=== PATIENT | male | born 1970 | race Caucasian/White ===

== ENCOUNTER 2017-09-09 15:45 | Emergency (ER) | payer BC ==
[~2017-09-09] VITALS: Ht 170.2 cm; Wt 83.0 kg
[~2017-09-09 15:45] MED LIST: ZOFRAN ODT8 MG PO
[2017-09-09] MEDS ORDERED: NAPROSYN500 MG PO (18:34)
== END 2017-09-09 18:45 | disposition home or self-care (01) ==
LOC: ED 15:45
DX: I86.1 Scrotal varices (principal)
CPT/HCPCS: 74176; 76870; 80053; 81001; 83690; 85025; 87591; 96361; 96374; 99284; J1885; J7040

== ENCOUNTER 2018-02-23 19:45 | Emergency (ER) | payer BC ==
[~2018-02-23] VITALS: Ht 170.2 cm; Wt 86.6 kg
[~2018-02-23 19:45] MED LIST changes: +MELOXICAM15 MG PO; +METOPROLOL SUCC25 MG PO; +NAPROSYN500 MG PO; +RANITIDINE HCL150 MG PO
[2018-02-23] MEDS ORDERED: SUDOGEST60 MG PO (21:39)
== END 2018-02-24 00:01 | disposition home or self-care (01) ==
LOC: ED 19:45
DX: J32.9 Chronic sinusitis, unspecified (principal); I10 Essential (primary) hypertension; K21.9 Gastro-esophageal reflux disease without esophagitis; Z87.891 Personal history of nicotine dependence; Z79.899 Other long term (current) drug therapy
CPT/HCPCS: 70450; 99283-25

== ENCOUNTER 2020-04-20 17:27 | Emergency (ER) | payer BC ==
[~2020-04-20] VITALS: Ht 170.2 cm; Wt 99.8 kg
[~2020-04-20 17:27] MED LIST changes: +SUDOGEST60 MG PO
[2020-04-20] MEDS ORDERED: LOSARTAN POTASS50 MG PO (17:58)
[2020-04-20] MEDS ORDERED: AMLODIPINE BESY10 MG PO (17:58)
[2020-04-20] MEDS ORDERED: ASPIRIN81 MG PO (17:59)
[2020-04-20] MEDS ORDERED: LIPO-FLAVONOID1 EACH PO (17:59)
[2020-04-20] MEDS ORDERED: FISH OIL 1,0001 EAC3 PO (17:59)
== END 2020-04-20 18:44 | disposition home or self-care (01) ==
LOC: ED 17:27
DX: S31.801A Laceration without foreign body of unspecified buttock, initial encounter (principal); X58.XXXA Exposure to other specified factors, initial encounter; K21.9 Gastro-esophageal reflux disease without esophagitis; I10 Essential (primary) hypertension; Z87.891 Personal history of nicotine dependence; Z79.899 Other long term (current) drug therapy; Z79.82 Long term (current) use of aspirin
CPT/HCPCS: 99283

== ENCOUNTER 2020-12-06 06:23 | Day surgery (SDC) | payer BC ==
[~2020-12-06] VITALS: Ht 170.2 cm; Wt 102.1 kg
[~2020-12-06 06:23] MED LIST changes: +AMLODIPINE BESY10 MG PO; +ASPIRIN81 MG PO; +FISH OIL 1,0001 EAC3 PO; +LIPO-FLAVONOID1 EACH PO; +LOSARTAN POTASS50 MG PO
[2020-12-06] MEDS ORDERED: XANAX1 MG PO (06:42)
--- NOTE | 2020-12-06 07:57 | NUR ---
PT ALERT, ORIENTED AND SUPPORTED BY HIS MARCELO. PT IS HERE FOR HIS FIRST SCOPE. ALL QUESTIONS ASKED ANSWERED. MARCELO WILL WAIT, PT REQUESTED PRAYER, WILL FOLLOW NEEDED
--- NOTE | 2020-12-06 08:09 | NUR ---
12/06/20 0809 KAZ THOMAS 0759-PATIENT TO PACU ON RA. PATIENT PUT ON 2L PER NC. RR EVEN. PATIENT LAYING LEFT LATERAL. IV FLUIDS INFUSION. PATIENT IS SLEEPING BUT EASY AROUSABLE.
--- NOTE | 2020-12-07 08:14 | OR ---
[facility] [address] [place], [place] [address] Signed DATE OF OPERATION: 12/06/2020 SURGEON: Diamante Estevez MD PREOPERATIVE DIAGNOSES: 1. Screening. 2. Posterior midline anal fistula. 3. Small internal hemorrhoids. POSTOPERATIVE DIAGNOSES: 1. Tivuzff-kk-txayxrzw pandiverticulosis. 2. Posterior midline anal fistula. 3. 4 mm rectal polyp at 8 cm. 4. Small internal hemorrhoids. PROCEDURE: Colonoscopy with hot biopsy. ESTIMATED BLOOD LOSS: None. 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 He had come to my office for 2 reasons. First, he needed a screening colonoscopy. He has no family history of colon cancer or polyps. He has never had a previous colonoscopy. However, he was complaining of drainage and irritation around the anus for over a year. He can feel pressure buildup and it releases and feels better. He said once in a while he sees blood involved as well. His has been helping him keep that area clean. On exam in the office, he indeed has a posterior midline anal fistula. I can feel a little pocket underneath. It does not appear to be particularly deep. He had good sphincter tone. The anoscope showed minimal internal hemorrhoid tissue. The rectal mucosa was unremarkable. In the office, I gave Kenneth and his a pamphlet on colonoscopy. We had reviewed the nature of that test in detail. 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 His has also undergone colonoscopy with myself just a few weeks ago. They understand there is risk including, but not limited to gas bloating, crampy abdominal pain, bleeding, perforation requiring surgery, and missed diagnosis. He also understands the need for IV conscious sedation. We reviewed IV sedation versus monitored anesthesia care in great detail. Kenneth wanted to proceed with routine IV conscious sedation with Versed and fentanyl. However, he did request Xanax in order to Electronically Signed By: DIAMANTE ESTEVEZ MD 12/07/20 0814 PATIENT NAME: KENNETH DOS SANTOS OPERATIVE REPORT DATE OF : 68 REPORT #: [id number] PHYSICIAN: DIAMANTE ESTEVEZ MD PCP: ABDIEL CISNEROS MD REPORT IS CONFIDENTIAL AND NOT TO BE RELEASED WITHOUT AUTHORIZATION [facility] [address] [place] [id number] Signed help him come in the building this morning due to his anxiety. He had expressed understanding and wished to proceed. PROCEDURE NOTE: Kenneth was taken into our endoscopy suite and placed in the left lateral decubitus position. We had 4 mg of Zofran and 12.5 mg of Phenergan in our preop area to the Xanax that he took about 2 hours prior to coming. Once in the endoscopy suite, he was given divided doses of 6 mg of Versed and 200 mcg of fentanyl. A digital rectal exam had been performed and again he has good sphincter tone. I could see the fistula opening in the posterior midline. I can feel a small pocket of induration underneath that area. Really nothing in the way of external hemorrhoids. His prostate was unremarkable. The adult colonoscope was introduced and advanced all around into the cecum under direct visualization of the camera without difficulty. He took a little extra sedation and Fentanyl to get around to the cecum itself. His prep was quite excellent. We could easily see the appendiceal orifice and the ileocecal valve. The scope was then slowly withdrawn. We took several pictures throughout for photodocumentation. He does have diverticula throughout the colon. They were moderate in size, a few to moderate in number and scattered about. He had just a single small 4 mm polyp at 8 cm in the rectum. It was easily removed with hot biopsy forceps. The scope was then retroflexed in the rectum. He has very minimal internal hemorrhoid tissue. After this, the gas was suctioned out and colonoscope removed. Kenneth tolerated the procedure quite well. RECOMMENDATIONS: I will see Kenneth back in my office in 7 to 14 days to review his results and the posterior midline anal fistula. Diamante Estevez MD ALB/MODL /[id number] cc: Diamante Estevez MD Chart Filed Incomplete Abdiel Cisneros MD Electronically Signed By: DIAMANTE ESTEVEZ MD 12/07/20 0814 PATIENT NAME: KENNETH DOS SANTOS OPERATIVE REPORT DATE OF : 68 REPORT #: [id number] PHYSICIAN: DIAMANTE ESTEVEZ MD PCP: ABDIEL CISNEROS MD REPORT IS CONFIDENTIAL AND NOT TO BE RELEASED WITHOUT AUTHORIZATION [address] [address] Signed Copies: DIAMANTE ESTEVEZ MD CHART FILED INCOMPLETE ABDIEL CISNEROS MD ~ Electronically Signed By: DIAMANTE ESTEVEZ MD 12/07/2014 PATIENT NAME: KENNETH DOS SANTOS OPERATIVE REPORT DATE OF : 68 REPORT #: [id number] PHYSICIAN: DIAMANTE ESTEVEZ MD PCP: ABDIEL CISNEROS MD REPORT IS CONFIDENTIAL AND NOT TO BE RELEASED WITHOUT AUTHORIZATION
--- NOTE | 2020-12-07 15:08 | PATH ---
[facility] [address], [place] [address] Signed SPECIMEN(S): A COLON POLYP AT 8 CM SPECIMEN SOURCE: A. COLON POLYP AT 8 CM CLINICAL HISTORY: Colonoscopy screening. Anal fistula; small internal hemorrhoids/rectal polyp; diverticulosis. MICROSCOPIC DESCRIPTION: Histologic sections of all submitted blocks are examined by light microscopy. These findings, together with the gross examination, support the pathologic diagnosis. FINAL PATHOLOGIC DIAGNOSIS: Colon, 8 cm, polypectomy: - Hyperplastic polyp. BRP:caw:C2NR GROSS DESCRIPTION: The specimen, labeled "BH, 1," and designated on the requisition "8 cm colon polypectomy," is received in formalin and consists of one fragment of pink-bahena tissue (0.2 cm in greatest dimension). The specimen is submitted entirely in cassette (A1). AC (under the direct supervision of a pathologist) The Gross Description was prepared using a voice recognition system. The report was reviewed for accuracy; however, sound-alike word errors, addition and/or deletions may occur. If there is any question about this report, please contact Client Services. PERFORMING LABORATORY: The technical component was performed by [facility], [address] [place] [id number] (Copy Director: Libby Edouard MD; CLIA# [id number]). [facility], [address] [address] (CLIA# [id number]). Diagnostician: Ruben White MD Pathologist Electronically Signed 12/07/2020 PATIENT NAME: KENNETH DOS SANTOS PATHOLOGY DATE OF : 68 REPORT #: [id number] PHYSICIAN: [facility] PCP: ABDIEL CISNEROS MD REPORT IS CONFIDENTIAL AND NOT TO BE RELEASED WITHOUT AUTHORIZATION [address] [address] Signed Copies: ~ PATIENT NAME: KENNETH DOS SANTOS PATHOLOGY DATE OF : 68 REPORT #: [id number] PHYSICIAN: [facility] PCP: ABDIEL CISNEROS MD REPORT IS CONFIDENTIAL AND NOT TO BE RELEASED WITHOUT AUTHORIZATION
== END 2020-12-06 09:09 | disposition home or self-care (01) ==
LOC: DS 06:23 → OPS 06:23 → DS 06:45 → OPS 06:45
PROVIDERS: ATTEND Colon & Rectal Surgery
PROC: 0DBP8ZX Excision of Rectum, Via Natural or Artificial Opening Endoscopic, Diagnostic (ICD-10-PCS; principal; 2020-12-06 06:45)
DX: K62.1 Rectal polyp (principal); K57.30 Diverticulosis of large intestine without perforation or abscess without bleeding; K60.3 Anal fistula; K64.8 Other hemorrhoids; I10 Essential (primary) hypertension; E78.5 Hyperlipidemia, unspecified; Z87.891 Personal history of nicotine dependence; Z88.8 Allergy status to other drugs, medicaments and biological substances
CPT/HCPCS: 99153; G0500; J2250; J2405; J2550; J3010; J7121

== ENCOUNTER 2021-05-25 13:04 | Emergency (ER) | payer BC ==
[~2021-05-25] VITALS: Ht 170.2 cm; Wt 105.3 kg
[~2021-05-25 13:04] MED LIST changes: +XANAX1 MG PO
[2021-05-25] MEDS ORDERED: INDAPAMIDE1.25 MG PO (13:43)
[2021-05-25] MEDS ORDERED: ELIQUIS5 MG PO (16:16)
--- NOTE | 2021-05-25 17:28 | EKG ---
[facility] [address] [place] [address] Signed Normal sinus rhythm Cannot rule out Anterior infarct , age undetermined Abnormal ECG When compared with ECG of 25-MAY-2021 13:09, (Unconfirmed) Sinus rhythm has replaced Atrial flutter Vent. rate has decreased BY [address] no longer depressed in Inferior leads ST less depressed in Lateral leads Confirmed by ABDIEL CISNEROS MD ([id number]) on 05/25/2021 5:28:28 PM Electronically Signed By: ABDIEL CISNEROS MD 05/25/21 1728 PATIENT NAME: KENNETH DOS SANTOS Electrocardiogram DATE OF : 68 PHYSICIAN: ABDIEL CISNEROS MD REPORT #: [id number] REPORT IS CONFIDENTIAL AND NOT TO BE RELEASED WITHOUT AUTHORIZATION
--- NOTE | 2021-05-25 17:28 | EKG ---
[facility] [address] [facility] [place] [address] Signed Atrial flutter with variable AV block with premature ventricular or aberrantly conducted complexes Nonspecific ST abnormality Abnormal ECG When compared with ECG of 09-DEC-2017 14:21, Atrial flutter has replaced Sinus rhythm Vent. rate has increased BY [address] now depressed in Inferior leads ST now depressed in Lateral leads Confirmed by ABDIEL CISNEROS MD ([id number]) on 05/25/2021 5:28:10 PM Electronically Signed By: ABDIEL CISNEROS MD 05/25/21 1728 PATIENT NAME: KENNETH DOS SANTOS Electrocardiogram DATE OF : 68 PHYSICIAN: ABDIEL CISNEROS MD REPORT #: [id number] REPORT IS CONFIDENTIAL AND NOT TO BE RELEASED WITHOUT AUTHORIZATION
== END 2021-05-25 17:20 | disposition home or self-care (01) ==
LOC: ED 13:04
DX: I48.92 Unspecified atrial flutter (principal); K21.9 Gastro-esophageal reflux disease without esophagitis; I10 Essential (primary) hypertension; Z87.891 Personal history of nicotine dependence; Z88.8 Allergy status to other drugs, medicaments and biological substances; Z79.899 Other long term (current) drug therapy; Z79.82 Long term (current) use of aspirin; Z20.822 Contact with and (suspected) exposure to COVID-19
CPT/HCPCS: 36415; 80053; 83735; 84484; 85025; 93005; 93010; 96374; 96375; 99285-25; J0153; J2704; J7030; U0003

== ENCOUNTER 2021-07-07 18:55 | Emergency (ER) | payer BC ==
[~2021-07-07] VITALS: Ht 170.2 cm; Wt 105.2 kg
[~2021-07-07 18:55] MED LIST changes: +ELIQUIS5 MG PO; +INDAPAMIDE1.25 MG PO
[2021-07-07] MEDS ORDERED: MULTI VITAMIN1 EACH PO (19:14)
[2021-07-07] MEDS ORDERED: CARDIZEM CD180 MG PO (22:19)
[2021-07-07] MEDS ORDERED: ELIQUIS5 MG PO (22:19)
--- NOTE | 2021-07-09 08:59 | EKG ---
[facility] [address] [facility] [place] [address] Signed Atrial flutter with variable block Marked ST abnormality, possible inferior subendocardial injury Abnormal ECG No previous ECGs available Confirmed by ABDIEL CISNEROS MD ([id number]) on 07/09/2021 8:58:42 AM Electronically Signed By: ABDIEL CISNEROS MD 07/09/21 0859 PATIENT NAME: KENNETH DOS SANTOS Electrocardiogram DATE OF : 68 PHYSICIAN: ABDIEL CISNEROS MD REPORT #: [id number] REPORT IS CONFIDENTIAL AND NOT TO BE RELEASED WITHOUT AUTHORIZATION
== END 2021-07-07 22:34 | disposition home or self-care (01) ==
LOC: ED 18:55
DX: I48.92 Unspecified atrial flutter (principal); K21.9 Gastro-esophageal reflux disease without esophagitis; I10 Essential (primary) hypertension; G47.30 Sleep apnea, unspecified; Z87.891 Personal history of nicotine dependence; Z88.8 Allergy status to other drugs, medicaments and biological substances; Z79.01 Long term (current) use of anticoagulants; Z79.82 Long term (current) use of aspirin; Z79.899 Other long term (current) drug therapy
CPT/HCPCS: 36415; 80048; 83735; 85025; 93005; 93010; 96374; 96376; 99285-25; A9270; J2704

== ENCOUNTER 2021-09-21 13:52 | Emergency (ER) | payer BC ==
[~2021-09-21] VITALS: Ht 170.2 cm; Wt 102.5 kg
--- NOTE | ~2021-09-21 | EKG ---
[facility] [address] [facility] [place], [place] [address] Draft EKG completed, results pending confirmation PATIENT NAME: KENNETH DOS SANTOS Electrocardiogram DATE OF : 68 PHYSICIAN: PRELIMINARY REPORT #: [id number] REPORT IS CONFIDENTIAL AND NOT TO BE RELEASED WITHOUT AUTHORIZATION
[~2021-09-21 13:52] MED LIST changes: +CARDIZEM CD180 MG PO; +MULTI VITAMIN1 EACH PO
[2021-09-21] MEDS ORDERED: BUSPIRONE HCL10 MG PO (14:22)
== END 2021-09-21 15:27 | disposition home or self-care (01) ==
LOC: ED 13:52
DX: I48.92 Unspecified atrial flutter (principal); K21.9 Gastro-esophageal reflux disease without esophagitis; I10 Essential (primary) hypertension; G47.30 Sleep apnea, unspecified; Z87.891 Personal history of nicotine dependence; Z88.8 Allergy status to other drugs, medicaments and biological substances; Z79.899 Other long term (current) drug therapy
CPT/HCPCS: 36415; 80048; 84484; 85025; 93005; 93010; 99285-25; A9270

== ENCOUNTER 2021-10-08 17:50 | Emergency (ER) | payer BC ==
[~2021-10-08] VITALS: Ht 170.2 cm; Wt 97.1 kg
--- NOTE | ~2021-10-08 | EKG ---
[facility] [address] [facility] [place], [place] [address] Draft EK completed, results pending confirmation PATIENT NAME: KENNETH DOS SANTOS Electrocardiogram DATE OF : 68 PHYSICIAN: PRELIMINARY REPORT #: [id number] REPORT IS CONFIDENTIAL AND NOT TO BE RELEASED WITHOUT AUTHORIZATION
--- NOTE | ~2021-10-08 | EKG ---
[facility] [address] [facility] [place], [place] [address] Draft EK completed, results pending confirmation PATIENT NAME: KENNETH DOS SANTOS Electrocardiogram DATE OF : 68 PHYSICIAN: PRELIMINARY REPORT #: [id number] REPORT IS CONFIDENTIAL AND NOT TO BE RELEASED WITHOUT AUTHORIZATION
[~2021-10-08 17:50] MED LIST changes: +BUSPIRONE HCL10 MG PO
--- OUTSIDE RECORDS SUMMARY | 2021-10-08 17:52 | XMS ---
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 Alfonso has no Care Guidelines for this patient. Krunal VISIT COUNT (12 MO.) [facility] T[facility] NOTE: Visits indicate total known visits. ED/C VISIT TRACKING (12 MO.) 10/08/2021 17:51 [facility] TYPE: Emergency COMPLAINT: - CHEST FLUTTERS 09/21/2021 13:53 [facility] TYPE: Emergency DIAGNOSES: - Gastro-esophageal reflux disease without esophagitis - Unspecified atrial flutter - Essential (primary) hypertension - Other intermodal customer service (current) drug therapy - Allergy status to other drugs, medicaments and biological substances - Palpitations - Sleep apnea, unspecified - Personal history of nicotine dependence 07/07/2021 18:55 [facility] TYPE: Emergency COMPLAINT: - HIGH BLOOD PRESSURE DIAGNOSES: - Sleep apnea, unspecified - Essential (primary) hypertension - skilled nursing (current) use of anticoagulants - Gastro-esophageal reflux disease without esophagitis - Unspecified atrial flutter - intermediate designer (current) use of aspirin - Allergy status to other drugs, medicaments and biological substances - Palpitations - Other care home (current) drug therapy - Personal history of nicotine dependence 05/25/2021 13:04 [facility] TYPE: Emergency COMPLAINT: - HIGH B/P, RACING HEART DIAGNOSES: - Personal history of nicotine dependence - Allergy status to other drugs, medicaments and biological substances - intermediate designer (current) use of aspirin - Other intermodal customer service (current) drug therapy - Tachycardia, unspecified - Contact with and (suspected) exposure to COVID-19 - Essential (primary) hypertension - Unspecified atrial flutter - Gastro-esophageal reflux disease without esophagitis INPATIENT VISIT TRACKING (12 MO.) No inpatient visits to display in this time frame [id number]
[2021-10-08] MEDS ORDERED: ALDACTONE25 MG PO (18:32)
[2021-10-08] MEDS ORDERED: ASPIRIN81 MG PO (18:32)
== END 2021-10-08 21:00 | disposition home or self-care (01) ==
LOC: ED 17:50
DX: I48.92 Unspecified atrial flutter (principal); I10 Essential (primary) hypertension; Z87.891 Personal history of nicotine dependence; Z79.899 Other long term (current) drug therapy; Z79.01 Long term (current) use of anticoagulants; Z88.8 Allergy status to other drugs, medicaments and biological substances; Z79.82 Long term (current) use of aspirin
CPT/HCPCS: 36415; 71045; 80053; 83735; 84484; 85025; 85610; 93005; 93010; J7030

== ENCOUNTER 2021-11-10 04:05 | Emergency (ER) | payer BC ==
[~2021-11-10] VITALS: Ht 170.2 cm; Wt 97.1 kg
[~2021-11-10 04:05] MED LIST changes: +ALDACTONE25 MG PO
[2021-11-10] MEDS ORDERED: FLECAINIDE ACET50 MG (04:25)
--- NOTE | 2021-11-11 20:56 | EKG ---
[facility] [address] [place] [place] [address] Signed Atrial flutter with variable AV block Anterior infarct , age undetermined Abnormal ECG Confirmed by Raza Mckoy MD () on 11/11/2021 8:56:06 PM Electronically Signed By: RAZA MCKOY MD 11/11/212055 PATIENT NAME: KENNETH DOS SANTOS Electrocardiogram DATE OF : 68 PHYSICIAN: RAZA MCKOY MD REPORT #: [id number] REPORT IS CONFIDENTIAL AND NOT TO BE RELEASED WITHOUT AUTHORIZATION
--- NOTE | 2021-11-12 21:11 | EKG ---
[facility] [address] [place] [place] [address] Signed Wide QRS tachycardia Left bundle branch block Abnormal ECG When compared with ECG of 10-NOV-2021 04:12, Wide QRS tachycardia has replaced Atrial flutter Vent. rate has increased BY 132 BPM Confirmed by TOSHIA HANNON MD ([id number]) on 11/12/2021 9:11:16 PM Electronically Signed By: TOSHIA HANNON MD 11/12/212110 PATIENT NAME: DOS SANTOSKENNETHLUCIEN BOBBY Electrocardiogram DATE OF : 68 PHYSICIAN: TOSHIA HANNON MD REPORT #: [id number] REPORT IS CONFIDENTIAL AND NOT TO BE RELEASED WITHOUT AUTHORIZATION
== END 2021-11-10 05:38 | disposition home or self-care (01) ==
LOC: ED 04:05
DX: I48.92 Unspecified atrial flutter (principal); K21.9 Gastro-esophageal reflux disease without esophagitis; I10 Essential (primary) hypertension; G47.30 Sleep apnea, unspecified; Z87.891 Personal history of nicotine dependence; Z88.8 Allergy status to other drugs, medicaments and biological substances; Z79.899 Other long term (current) drug therapy
CPT/HCPCS: 93005; 93010; 99284-25

== ENCOUNTER 2021-11-12 11:07 | Emergency (ER) | payer BC ==
[~2021-11-12] VITALS: Ht 170.2 cm; Wt 97.1 kg
[~2021-11-12 11:07] MED LIST changes: +FLECAINIDE ACET50 MG
--- OUTSIDE RECORDS SUMMARY | 2021-11-12 11:10 | XMS ---
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 - 2 Visits in 30 Days CARE PROVIDERS There are no care providers on record at this time. Alfonso has no Care Guidelines for this patient. Krunal VISIT COUNT (12 MO.) 6 [facility] T[facility] 6 NOTE: Visits indicate total known visits. ED/C VISIT TRACKING (12 MO.) 11/12/2021 11:07 [facility] COMPLAINT: - BLOOD PRESSURE PROBLEM 11/10/2021 04:05 [facility] TYPE: Emergency COMPLAINT: - IRREGULAR HEART RATE 10/08/2021 17:51 [facility] TYPE: Emergency COMPLAINT: - CHEST FLUTTERS DIAGNOSES: - extermination supervisor (current) use of aspirin - Essential (primary) hypertension - Tachycardia, unspecified - Allergy status to other drugs, medicaments and biological substances - Personal history of nicotine dependence - extermination supervisor (current) use of anticoagulants - Unspecified atrial flutter - Other exterminator termite (current) drug therapy 09/21/2021 13:53 [facility] TYPE: Emergency DIAGNOSES: - Essential (primary) hypertension - Other correction (current) drug therapy - Allergy status to other drugs, medicaments and biological substances - Palpitations - Sleep apnea, unspecified - Personal history of nicotine dependence - Gastro-esophageal reflux disease without esophagitis - Unspecified atrial flutter 07/07/2021 18:55 [facility] TYPE: Emergency COMPLAINT: - HIGH BLOOD PRESSURE DIAGNOSES: - Gastro-esophageal reflux disease without esophagitis - Unspecified atrial flutter - extermination supervisor (current) use of aspirin - Allergy status to other drugs, medicaments and biological substances - Palpitations - Other exterminator termite (current) drug therapy - Personal history of nicotine dependence - Sleep apnea, unspecified - Essential (primary) hypertension - extermination supervisor (current) use of anticoagulants 05/25/2021 13:04 [facility] TYPE: Emergency COMPLAINT: - HIGH B/P, RACING HEART DIAGNOSES: - Other exterminator termite (current) drug therapy - Tachycardia, unspecified - Contact with and (suspected) exposure to COVID-19 - Essential (primary) hypertension - Unspecified atrial flutter - Gastro-esophageal reflux disease without esophagitis - Personal history of nicotine dependence - Allergy status to other drugs, medicaments and biological substances - extermination supervisor (current) use of aspirin INPATIENT VISIT TRACKING (12 MO.) No inpatient visits to display in this time frame [id number]
--- NOTE | 2021-11-12 21:11 | EKG ---
[facility] [address] [place] [address] Signed Normal sinus rhythm Left bundle branch block Abnormal ECG When compared with ECG of 12-NOV-2021 11:24, (Unconfirmed) Sinus rhythm has replaced Wide QRS tachycardia Vent. rate has decreased BY 111 BPM Confirmed by TOSHIA HANNON MD ([id number]) on 11/12/2021 9:11:26 PM Electronically Signed By: TOSHIA HANNON MD 11/12/212110 PATIENT NAME: KENNETH DOS SANTOS Electrocardiogram DATE OF : 68 PHYSICIAN: TOSHIA HANNON MD REPORT #: [id number] REPORT IS CONFIDENTIAL AND NOT TO BE RELEASED WITHOUT AUTHORIZATION
--- NOTE | 2021-11-12 21:12 | EKG ---
[facility] [address] [facility] [place] [address] Signed Atrial fibrillation with rapid ventricular response Left bundle branch block Abnormal ECG When compared with ECG of 12-NOV-2021 11:40, (Unconfirmed) Atrial fibrillation has replaced Sinus rhythm Confirmed by TOSHIA HANNON MD ([id number]) on 11/12/2021 9:11:58 PM Electronically Signed By: TOSHIA HANNON MD 11/12/212111 PATIENT NAME: KENNETH DOS SANTOS Electrocardiogram DATE OF : 68 PHYSICIAN: TOSHIA HANNON MD REPORT #: [id number] REPORT IS CONFIDENTIAL AND NOT TO BE RELEASED WITHOUT AUTHORIZATION
== END 2021-11-12 21:05 | disposition short-term general hospital (02) ==
LOC: ED 11:07
DX: I47.2 Ventricular tachycardia (principal); K21.9 Gastro-esophageal reflux disease without esophagitis; I10 Essential (primary) hypertension; G47.30 Sleep apnea, unspecified; I48.92 Unspecified atrial flutter; Z87.891 Personal history of nicotine dependence; Z88.8 Allergy status to other drugs, medicaments and biological substances; Z79.899 Other long term (current) drug therapy
CPT/HCPCS: 36415; 71045; 80053; 83735; 84484; 85025; 87502; 92960; 93005; 93010; 99285-25; J0282; J7030; U0003

== ENCOUNTER 2021-11-28 17:08 | Emergency (ER) | payer BC ==
[~2021-11-28] VITALS: Ht 170.2 cm; Wt 97.1 kg
--- OUTSIDE RECORDS SUMMARY | 2021-11-28 17:11 | XMS ---
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 E.Griselda VISIT COUNT (12 MO.) 7 [facility] TOTAL 7 NOTE: Visits indicate total known visits. ED/UCC VISIT TRACKING (12 MO.) 11/28/2021 17:09 [facility] TYPE: Emergency COMPLAINT: - RAPID HEART RATE 11/12/2021 11:07 [facility] TYPE: Emergency COMPLAINT: - BLOOD PRESSURE PROBLEM DIAGNOSES: - Ventricular tachycardia - Other manager intermediate (current) drug therapy - Essential (primary) hypertension - Personal history of nicotine dependence - Gastro-esophageal reflux disease without esophagitis - Unspecified atrial flutter - Allergy status to other drugs, medicaments and biological substances - Tachycardia, unspecified - Sleep apnea, unspecified 11/10/2021 04:05 [facility] TYPE: Emergency COMPLAINT: - IRREGULAR HEART RATE DIAGNOSES: - Allergy status to other drugs, medicaments and biological substances - Palpitations - Gastro-esophageal reflux disease without esophagitis - Unspecified atrial flutter - Other correction (current) drug therapy - Essential (primary) hypertension - Sleep apnea, unspecified - Personal history of nicotine dependence 10/08/2021 17:51 [facility] TYPE: Emergency COMPLAINT: - CHEST FLUTTERS DIAGNOSES: - [facility] (current) use of aspirin - Essential (primary) hypertension - Tachycardia, unspecified - Allergy status to other drugs, medicaments and biological substances - Personal history of nicotine dependence - rn long term care (current) use of anticoagulants - Unspecified atrial flutter - Other correction (current) drug therapy 09/21/2021 13:53 [facility] TYPE: Emergency DIAGNOSES: - Essential (primary) hypertension - Other manager intermediate (current) drug therapy - Allergy status to other drugs, medicaments and biological substances - Palpitations - Sleep apnea, unspecified - Personal history of nicotine dependence - Gastro-esophageal reflux disease without esophagitis - Unspecified atrial flutter 07/07/2021 18:55 [facility] TYPE: Emergency COMPLAINT: - HIGH BLOOD PRESSURE DIAGNOSES: - Gastro-esophageal reflux disease without esophagitis - Unspecified atrial flutter - rn long term care (current) use of aspirin - Allergy status to other drugs, medicaments and biological substances - Palpitations - Other correction (current) drug therapy - Personal history of nicotine dependence - Sleep apnea, unspecified - Essential (primary) hypertension - rn long term care (current) use of anticoagulants 05/25/2021 13:[address] [facility] [place] TYPE: Emergency COMPLAINT: - HIGH B/P, RACING HEART DIAGNOSES: - Other correction (current) drug therapy - Tachycardia, unspecified - Contact with and (suspected) exposure to COVID-19 - Essential (primary) hypertension - Unspecified atrial flutter - Gastro-esophageal reflux disease without esophagitis - Personal history of nicotine dependence - Allergy status to other drugs, medicaments and biological substances - rn long term care (current) use of aspirin INPATIENT VISIT TRACKING (12 MO.) 11/12/2021 23:40 [facility] TYPE: General Medicine DIAGNOSES: - Ventricular tachycardia - Typical atrial flutter - Post cardioversion, [email or web address]
[2021-11-28] MEDS ORDERED: AMIODARONE HCL400 MG PO ×2 (19:27)
--- NOTE | 2021-11-28 21:56 | EKG ---
[facility] [address] [facility] [place] [address] Signed Atrial fibrillation with rapid ventricular response with premature ventricular or aberrantly conducted complexes Nonspecific ST abnormality Abnormal ECG When compared with ECG of 12-NOV-2021 19:36, Left bundle branch block is no longer present Confirmed by TOSHIA HANNON MD ([id number]) on 11/28/2021 9:56:38 PM Electronically Signed By: TOSHIA HANNON MD 11/28/21 2156 PATIENT NAME: KENNETH DOS SANTOS Electrocardiogram DATE OF : 68 PHYSICIAN: TOSHIA HANNON MD REPORT #: [id number] REPORT IS CONFIDENTIAL AND NOT TO BE RELEASED WITHOUT AUTHORIZATION
== END 2021-11-28 19:50 | disposition home or self-care (01) ==
LOC: ED 17:08
DX: I47.20 Ventricular tachycardia, unspecified (principal); K21.9 Gastro-esophageal reflux disease without esophagitis; I10 Essential (primary) hypertension; G47.30 Sleep apnea, unspecified; I48.92 Unspecified atrial flutter; Z79.899 Other long term (current) drug therapy; Z88.8 Allergy status to other drugs, medicaments and biological substances
CPT/HCPCS: 36415; 71045; 80053; 83735; 84484; 85025; 93005; 93010; 96374; 96375; 99284-25; J0282; J2060